=== PATIENT | female | born 1940 | race Two or more races ===

== ENCOUNTER 2018-01-29 10:35 | Emergency (ER) | payer MEDICARE, OTHER ==
[~2018-01-29] VITALS: Ht 147.3 cm; Wt 59.9 kg
[2018-01-29 10:41] VITALS: Ht 147.3 cm; Wt 59.9 kg
[2018-01-29 11:10] LABS: BASOPHIL % 0.7 % (0-2); PLATELET COUNT 218 x10^3mcL (130-400); RED CELL DISTRIBUTION WIDTH 13.4 % (11.5-14.5)
[2018-01-29 11:22] LABS: CALCIUM 9.8 mg/dL (8.5-10.1); CARBON DIOXIDE 25.1 mmol/L (21-32); CHLORIDE SERUM 106 mmol/L (98-107); GLUCOSE SERUM 206 mg/dL (74-106); POTASSIUM SERUM 4.7 mmol/L (3.5-5.1); SODIUM SERUM 138 mmol/L (136-145)
[2018-01-29] MEDS ORDERED: ASPIR 8181 MG PO (12:48)
[2018-01-29] MEDS ORDERED: PRILOSEC OTC20 M1 PO (12:49)
[2018-01-29] MEDS ORDERED: METFORMIN HYDR500 M1 (12:49)
[2018-01-29] MEDS ORDERED: LISINOPRIL2.5 MG (12:49)
[2018-01-29] MEDS ORDERED: HUMALOG100 UNIT/1 (12:49)
[2018-01-29] MEDS ORDERED: PRAVASTATIN SOD10 M1 (12:49)
[2018-01-29] MEDS ORDERED: ACT15 (12:49)
[2018-01-29] MEDS ORDERED: PROAIR HFA8.5 GM IH (12:50)
[2018-01-29] MEDS ORDERED: MASON NATURAL1000 IU (12:50)
[2018-01-29] MEDS ORDERED: TRAVATAN Z5 ML (12:50)
[2018-01-29] MEDS ORDERED: PROAIR HFA8.5 GM (12:50)
[2018-01-29 13:37] VITALS: BP 137/80
[2018-01-29 14:06] LABS: CHOLESTEROL/HDL RATIO 2.6; MAGNESIUM 1.7 mg/dL (1.8-2.4); PHOSPHOROUS 3.6 mg/dL (2.5-4.9)
[2018-01-29 14:15] LABS: T3 TOTAL 1.14 ng/mL
[2018-01-29 14:33] LABS: FREE T4 0.98 ng/dL (0.76-1.46); FREE THYROXINE INDEX 2.8 ug/dL (1.4-4.5); T4(THYROXINE) 8.4 ug/dL (4.7-13.3)
== END 2018-01-29 13:37 | disposition left against medical advice (07) ==
LOC: ED 10:35 → DU 12:23 → ED 12:23
PROVIDERS: Emergency Medicine; Family Medicine
DX: I10 Essential (primary) hypertension (principal); E11.8 Type 2 diabetes mellitus with unspecified complications; R07.89 Other chest pain; E78.00 Pure hypercholesterolemia, unspecified
CPT/HCPCS: 83880; 84439; Q0092